=== PATIENT | female | born 1990 | race Caucasian/White ===

== ENCOUNTER 2016-08-28 16:51 | Emergency (ER) | payer BC ==
[2016-08-28 18:22] VITALS: BP 107/67
--- NOTE | 2016-08-28 18:44 | ED ---
Rachana Kitchen SooYoung, scribed for Carrillo Antony MD on 08/28/16 at 1730 . 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 Migraines about once a month. Rates YANG as 6/10 pain. Associated sx: weakness since resolved; diffuse numbess/tingling RUE starting at fingertips rising to R- side of chest to face including tongue, mostly resolved. Tingling sensation lasted approx 15 minutes, sx have not occurred before. Denies CP, SOB, leg weakness, slurred speech, changes to LUE, morning sickness, nausea. Pt was at work, stated she noticed having difficulty typing. Spoke to her PCP who recommended that she come to ED. This is her 1st , saw Dr. Villegas once. L-hand dominant. - History Of Current Complaint Chief Complaint: EDGeneral Time Seen by Provider: 08/28/16 17:21 Hx Obtained From: Patient Onset/Duration: Gradual Onset, Lasting Hours - this afternoon, Still Present Severity Currently: Moderate Severity Initially: Mild Associated Signs And Symptoms: Positive: Weakness - RUE, Other - pos: R-sided numbness/tingling, migraine. neg: slurred speech, changes to LUE. Negative: SOB , Chest Pain, Nausea - Allergies/Home Medications Allergies/Adverse Reactions: Allergies Allergy/AdvReac Type Severity Reaction Status Date / Time No Known Allergies Allergy Verified 06/27/15 17:34 PMH/Surg Hx/FS Hx/Imm Hx Previously Healthy: Yes Respiratory History: Denies: Hx Chronic Obstructive Pulmonary Disease (COPD) Sensory History: Denies: Hx Legally Blind Opthamlomology History: Denies: Hx Legally Blind - Surgical History Surgery Procedure, Year, and Place: T&A Infectious Disease History: No Infectious Disease History: Denies: Traveled Outside the [place] in Last 30 Days - Family History Known Family History: Positive: Other - PE - maternal, clotting disorders - maternal - Social History Alcohol Use: None Substance Use Type: Reports: None Smoking Status (MU): Never Smoked Tobacco Review of Systems Negative: Chest Pain Negative: Shortness Of Breath Negative: Nausea - neg: morning sickness Positive: Headache - `, Weakness - and tingling from RUE to face; neg leg weakness. Negative: Slurred Speech All Other Systems Reviewed And Are Negative: Yes Physical Exam - Summary Physical Exam Summary: The patient is well-nourished in no acute distress and in no acute pain. The skin is warm and dry and skin color reflects adequate perfusion. HEENT: The head is normocephalic and atraumatic. The pupils are equal and reactive. EOMI. The conjunctivae are clear and without drainage. Nares are patent and without drainage. Mouth reveals moist mucous membranes and the throat is without erythema and exudate. The external ears are intact. The ear canals are patent and without drainage. The tympanic membranes are intact. Neck is supple with full range of motion and non-tender. There are no carotid bruits. There is no neck vein distension. Respiratory: Chest is non-tender. Lungs are clear to auscultation and breath sounds are symmetrical and equal. Cardiovascular: Heart is regular rate and rhythm. There is no murmur or rub auscultated. There is no peripheral edema and pulses are symmetrical and equal. Musculoskeletal: There is no back pain noted. Extremities are non-tender with full range of motion. There is good capillary refill. There is no peripheral edema or calf tenderness elicited. Neurological: Patient is alert and oriented to person, place and time. The patient has symmetrical motor strength in all four extremities. Cranial II-XII intact. Pt has decreased sensation on RUE compared to LUE. Positive tinel's sign and phaleon's sign on RUE. No motor weakness noted. LE are intact. Finger to nose intact. No pronator drift. Psychiatric: The patient has an appropriate affect and does not exhibit any anxiety or depression. Triage Information Reviewed: Yes Vital Signs On Initial Exam: Initial Vitals Temp Pulse Resp BP Pulse Ox 98.1 F 76 20 139/92 99 08/28/16 17:02 08/28/16 17:02 08/28/16 17:02 08/28/16 17:02 08/28/16 17:02 Vital Signs Reviewed: Yes Diagnostics - Vital Signs Vital Signs Temp Pulse Resp BP Pulse Ox 08/28/16 17:05 97.8 F 78 18 139/92 98 08/28/16 17:02 98.1 F 76 20 139/92 99 - Laboratory Lab Statement: Any lab studies that have been ordered have been reviewed, and results considered in the medical decision making process. Complex Multi-Symp Course/Dx Course Of Treatment: Pt is a 26 y/o F who is 8-weeks presenting with migraine onset ARMED GUARD. PMHx: migraines 1x a month. Associated sx: weakness; diffuse numbess/tingling RUE starting at fingertips rising to R-side of chest to face including tongue, mostly resolved. Tingling sensation lasted approx 15 minutes, sx have not occurred before. Denies CP, SOB, leg weakness, slurred speech, changes to LUE, morning sickness, nausea. Pt was at work, stated she noticed having difficulty typing. Cock up splint applied to R wrist. D/C home to follow up with Dr. Villegas and PCP. - Diagnoses Differential Diagnoses/HQI/PQRI: Other - , migraine, paresthesias Provider Diagnoses: Median nerve entrapment, Migraine, Discharge - Discharge Plan Condition: Stable Disposition: HOME Patient Education Materials: Splint Care (ED), Paresthesia (ED), Migraine Headache (ED), (ED) Referrals: Rubia Murray MD [Primary Care Provider] - 1 Week Angel Villegas MD [Medical Doctor] - 1 Week Additional Instructions: Follow up with Dr. Murray and Dr. Villegas within the week. The documentation as recorded by the Rachana peña SooYoung accurately reflects the service I personally performed and the decisions made by , Carrillo Antony MD.
== END 2016-08-28 18:23 | disposition home or self-care (01) ==
LOC: ED 16:51
DX: O26.891 Other specified pregnancy related conditions, first trimester (principal); Z3A.08 8 weeks gestation of pregnancy; G43.909 Migraine, unspecified, not intractable, without status migrainosus; R53.1 Weakness; R51 Headache; G56.00 Carpal tunnel syndrome, unspecified upper limb
CPT/HCPCS: 99282

== ENCOUNTER 2017-04-05 13:32 | Inpatient (IN) | payer BC ==
[2017-04-05 18:01] LABS: ABS Basophils 0 10^3/ul (0-0.2); ABS Eosinophils 0 10^3/ul (0-0.6); ABS Lymphocytes 0.9 10^3/ul (1.0-4.8); ABS Monocytes 0.6 10^3/ul (0-0.8); ABS Neutrophils 11.7 10^3/ul (1.5-7.7); ABS Nucleated RBC 0 10^3/ul; Eosinophil % 0.2 % (0-6); Hematocrit 44 % (35-47); Lymphocyte % 7.1 % (25-47); Mean Corpuscular HGB Conc 34 g/dl (31-36); Mean Corpuscular Hemoglobin 30 pg (27-31); Mean Corpuscular Volume 89 fL (80-97); Mean Platelet Volume 9 um3 (7.4-10.4); Nucleated Red Blood Cells % 0; Platelet Count 267 10^3/ul (150-450); Red Blood Count 4.98 10^6/ul (4.0-5.4); Red Cell Distribution Width 14 % (10.5-15); White Blood Count 13.3 10^3/ul (3.5-10.8)
[2017-04-05] MEDS ORDERED: Nalbuphine* 20 MG/ML 1 ML VIAL IV ONE (18:19)
[2017-04-05] MEDS ORDERED: Nalbuphine* 20 MG/ML 1 ML VIAL ONE (18:23)
[2017-04-05] MEDS ORDERED: Oxytocin in LR* 20 UNITS/1,000 ML BAG IVPB ONE (19:44)
[2017-04-05] MEDS ORDERED: Oxytocin in LR* 20 UNITS/1,000 ML BAG IVPB SCH (20:00)
[2017-04-05] MEDS ORDERED: OBEPIDURAL* 250 ML EPIDURAL ONE (21:31)
[2017-04-05] MEDS ORDERED: fentaNYL* 50 MCG/ML 2 ML VIAL (100 MCG VIAL) ONE ×2 (21:48→23:10)
[2017-04-05] MEDS ORDERED: Famotidine TAB* 20 MG PO PRN (22:26)
[2017-04-05] MEDS ORDERED: Phenylephrine IV* 40 MCG/ML 10 ML SYRINGE IV PUSH PRN ×2 (22:26)
[2017-04-05] MEDS ORDERED: Sodium Citrate/Citric Acid* 15 ML UDC PO PRN (22:26)
[2017-04-05] MEDS ORDERED: OBEPIDURAL* 250 ML EPIDURAL SCH (23:00)
[2017-04-06] MEDS ORDERED: Acetaminophen TAB* 325 MG PO PRN (01:35)
[2017-04-06] MEDS ORDERED: Witch Hazel PAD* JAR TOPICAL PRN (01:35)
[2017-04-06] MEDS ORDERED: Dibucaine 1% 28.35 GM TUBE PR PRN (01:35)
[2017-04-06] MEDS ORDERED: Misoprostol TAB* 200 MCG PR ONE (01:35)
[2017-04-06] MEDS ORDERED: Glycerin ADULT SUPP PR PRN (01:35)
[2017-04-06] MEDS ORDERED: Oxytocin in LR* 20 UNITS/1,000 ML BAG IVPB SCH (02:00)
[2017-04-06] MEDS: Ibuprofen TAB* 600 MG PO PRN ×4 (04:40→22:41)
[2017-04-06] MEDS ORDERED: Simethicone TAB* 80 MG TAB.CHEW PO SCH (08:30)
[2017-04-06] MEDS ORDERED: PRENATAL VITAMINS PO SCH (09:00)
[2017-04-06] MEDS: Docusate CAP* 100 MG PO SCH ×3 (10:33→22:41)
[2017-04-07 06:44] LABS: ABS Basophils 0.1 10^3/ul (0-0.2); ABS Eosinophils 0.2 10^3/ul (0-0.6); ABS Lymphocytes 3.2 10^3/ul (1.0-4.8); ABS Neutrophils 7.2 10^3/ul (1.5-7.7); ABS Nucleated RBC 0 10^3/ul; Eosinophil % 2.1 % (0-6); Hematocrit 33 % (35-47); Hemoglobin 11.3 g/dl (12.0-16.0); Lymphocyte % 27.6 % (25-47); Mean Corpuscular HGB Conc 34 g/dl (31-36); Mean Corpuscular Hemoglobin 31 pg (27-31); Mean Corpuscular Volume 91 fL (80-97); Mean Platelet Volume 8 um3 (7.4-10.4); Nucleated Red Blood Cells % 0; Platelet Count 255 10^3/ul (150-450); Red Blood Count 3.68 10^6/ul (4.0-5.4); Red Cell Distribution Width 14 % (10.5-15); White Blood Count 11.7 10^3/ul (3.5-10.8)
[2017-04-07] MEDS: Docusate CAP* 100 MG PO SCH ×3 (08:43→20:56)
[2017-04-07] MEDS ORDERED: Ferrous Gluconate TAB* 324 MG TAB PO SCH (09:00)
[2017-04-07] MEDS: Ibuprofen TAB* 600 MG PO PRN (14:07)
--- NOTE | 2017-04-08 02:56 | PTEDU ---
Patient Name: PAL MILIAN MAICOLPAL selected video: Never Ever Shake a Baby to view on 04/08/2017 at 2:55:28 AM from [facility] [id number]
[2017-04-08 08:39] VITALS: BP 93/68
[2017-04-08] MEDS: Docusate CAP* 100 MG PO SCH (08:44)
[2017-04-08] MEDS ORDERED: Prenatal Vitamin TAB PO SCH (10:30)
== END 2017-04-08 11:40 | disposition home or self-care (01) | DRG 560 ==
LOC: MCHOBOUT 13:32 → MCHOB 15:34
PROVIDERS: ADMIT Obstetrics & Gynecology; ATTEND Obstetrics & Gynecology
PROC: 10H073Z Insertion of Monitoring Electrode into Products of Conception, Via Natural or Artificial Opening (ICD-10-PCS; principal; 2017-04-05)
PROC: 4A1H7CZ Monitoring of Products of Conception, Cardiac Rate, Via Natural or Artificial Opening (ICD-10-PCS; 2017-04-05)
PROC: 10H07YZ Insertion of Other Device into Products of Conception, Via Natural or Artificial Opening (ICD-10-PCS; 2017-04-05)
PROC: 10E0XZZ Delivery of Products of Conception, External Approach (ICD-10-PCS; 2017-04-05)
PROC: 4A1HXCZ Monitoring of Products of Conception, Cardiac Rate, External Approach (ICD-10-PCS; 2017-04-05)
DX: O99.214 Obesity complicating childbirth (principal); E66.9 Obesity, unspecified; Z68.35 Body mass index [BMI] 35.0-35.9, adult; O69.2XX0 Labor and delivery complicated by other cord entanglement, with compression, not applicable or unspecified; Z3A.39 39 weeks gestation of pregnancy; Z37.0 Single live birth
CPT/HCPCS: 36415; 84112; 85025; 86850; 86900; 86901; A9270-GY; J2300; J3010

== ENCOUNTER → 2017-09-01 11:02 | Day surgery (SDC) | payer BC ==
[~2017-09-01 11:02] MED LIST: Buffered Lidocaine 0.9% SYRIN* 5 ML/SYR SYRINGE INTRADERM ONE; Bupivacaine 0.5% SDV PF* 30ML VIAL ONE; Dexamethasone TAB* 4 MG ONE; Dexamethasone TAB* 4 MG PO ONE; DiMENhydriNATE IV* 50 MG/ML VIAL IV PUSH PRN; Famotidine IV* 10 MG/ML 2 ML (20 mg) IV ONE; Famotidine IV* 10 MG/ML 2 ML (20 mg) ONE; Ketorolac INJ* 30 MG/ML 1 ML VIAL ONE; Lidocaine 2% PF * 5 ML VIAL ONE; Midazolam* 1 MG/ML 5 ML VIAL (5 MG) ONE; Morphine INJ* 2 MG/ML 1 ML CARPUJECT IV PRN; Naloxone* 0.4 MG/ML 1 ML VIAL IV PRN; Ondansetron ODT TAB* 4 MG ONE; PROCHLORPERAZINE INJ 5 MG/ML 2 ML VIAL IV PRN; Propofol* 10 MG/ML 20 ML BTL IV PUSH ONE; fentaNYL* 50 MCG/ML 2 ML VIAL (100 MCG VIAL) IV PRN; fentaNYL* 50 MCG/ML 2 ML VIAL (100 MCG VIAL) ONE; oxyCODONE/Acetamin 5/325 MG* TAB PO PRN
[2017-09-01] MEDS: Ondansetron INJ* 2 MG/ML VIAL ONE (12:10)
[2017-09-01 13:53] VITALS: BP 110/72
--- NOTE | 2017-09-01 20:56 | OP ---
DATE OF OPERATION: 09/01/17 - [facility] DATE OF : 89 SURGEON: Raman Pepe MD FIG WASHER: TAMIA Kern ANESTHESIOLOGIST: Dr. Ferrera. ANESTHESIA: Local MAC. PRE-OP DIAGNOSIS: Left de Quervain disease. POST-OP DIAGNOSIS: Left de Quervain disease. OPERATIVE PROCEDURE: Left de Quervain release. INDICATIONS: Yasmin is 27, she is five months . She has developed pretty significant de Quervain disease; it got better but not completely with the injection. We talked about her options. She wanted to proceed with surgical release. ESTIMATED BLOOD LOSS: 1 mL. COMPLICATIONS: None. FINDINGS: As expected. DESCRIPTION OF PROCEDURE: Yasmin was seen in the preoperative holding area. The correct side, site, and procedure were identified. We came back to the operating room where the arm was prepped and draped in the usual fashion. I had infiltrated 0.5% Marcaine prior to prepping and draping the arm. A time out was performed. I exsanguinated the arm with the Esmarch and the tourniquet was inflated to 250 mmHg. I made a transverse 2-cm incision just proximal to the radial styloid. Full thickness flaps were raised off the tendon sheath bluntly with the tenotomy scissors. The Ragnell retractors were placed to protect the radial sensory nerve. The sheath was released, just along its dorsal aspect, there was a small accessory compartment that was released. After this was done, everything was looking good. There was no more compression on the tendons. The release had been completed proximally and distally with the tenotomy scissors. I then irrigated out the wound. It was closed with Monocryl and a Steri-Strip. Dressings were applied. She was taken to the recovery room in stable condition. [id number]/[facility] #: [id number] [facility] CENTERConstantine
== END | disposition home or self-care (01) ==
LOC: OR 11:02
PROVIDERS: ATTEND Orthopaedic Surgery Hand Surgery
DX: M65.4 Radial styloid tenosynovitis [de Quervain] (principal)
CPT/HCPCS: 81025; A9270-GY; J1885; J2250; J2704; J3010; J8540

== ENCOUNTER 2018-11-08 02:07 | Inpatient (IN) | payer BC ==
[2018-11-08] MEDS ORDERED: Lactated Ringers 1000 ML Bag* 1,000 ML IV ONE ×2 (04:47→06:21)
[2018-11-08] MEDS ORDERED: Buffered Lidocaine 1% SYRIN* 1 ML/SYRINGE INTRADERM ONE (04:47)
[2018-11-08] MEDS ORDERED: OBEPIDURAL* 250 ML EPIDURAL ONE (04:49)
[2018-11-08 04:58] LABS: ABS Eosinophils 0.1 10^3/ul (0-0.6); ABS Lymphocytes 2.2 10^3/ul (1.0-4.8); ABS Monocytes 0.7 10^3/ul (0-0.8); ABS Neutrophils 7.7 10^3/ul (1.5-7.7); Eosinophil % 1.1 %; Hematocrit 41 % (35-47); Lymphocyte % 20.6 %; Mean Corpuscular HGB Conc 34 g/dL (31-36); Mean Corpuscular Hemoglobin 30 pg (27-31); Mean Corpuscular Volume 88 fL (80-97); Mean Platelet Volume 7.8 fL (7.4-10.4); Nucleated Red Blood Cells % 0.1; Platelet Count 280 10^3/uL (150-450); Red Blood Count 4.69 10^6 /uL (3.70-4.87); Red Cell Distribution Width 14 % (10-15); White Blood Count 10.8 10^3/uL (3.5-10.8)
[2018-11-08] MEDS ORDERED: Lactated Ringers 1000 ML Bag* 1,000 ML IV SCH ×3 (05:00→10:00)
--- NOTE | 2018-11-08 05:03 | HP ---
General Information - Reason for Visit contractions/ rupture of membranes - General Information Maternal Age: 28 Grav: 2 Para: 1 SAB: 0 IEA: 0 Estimated Due Date: 11/18/18 Determined By: Early Ultrasound Maternal Blood Type and Rh: A Positive - Results this Serology/RPR Result: Non-Reactive Rubella Result: Immune HBsAg Result: Negative HIV Result: Negative GBS Culture Result: Negative Past Medical History Delivery History: See Records Pertinent Past Medical History: See Records Pertinent Past Surgical History: See Records Pertinent Family History: See Records - Antepartal Records Antepartal Records: Reviewed, Uncomplicated Review of Systems Constitutional: Uncomfortable CV Complaint: No Respiratory: Shortness of Breath: No Gastrointestinal: No Nausea/Vomiting Genitourinary: Leaking Fluid, No Dysuria, No Bleeding Musculoskeletal: Contractions Neurological: No Headache Movement: Normal Exam Allergies/Adverse Reactions: Allergies No Known Allergies Allergy (Verified 11/08/18 02:32) T : 97.2 P: 92 BP: 116/67 Lab Values - Entire Visit: Laboratory Tests 11/08/18 02:25 Vag Amniotic Fld Detect Positive - Measurements Height: 5 ft 3 in Weight: 200 lb Weight in lbs: [id number] Body Mass Index (BMI): 35.4 Pre- Weight: 196 lb Weight Gained This : 4 lbs and 0 ozs - Exam Breast: Breast Exam Deferred CVA: No CVA Tenderness Extremities: No Edema Heart: Normal Rhythm/Heart Sounds HEENT: No Significant Findings Lungs: Clear Bilaterally Rectal: Rectal Exam Deferred Reflexes: DTR 2+ Thyroid: No Thyromegaly - Abdominal Exam Abdomen Exam: Non-Tender - Ultrasound/Biophysical Profile Ultrasound Status: Not Done Targeted Exam Findings Cervical Exam: 3cm Effacement: 60% Station: -1 Presenting Part: Vertex Membrane Status: Leaking Amniotic Fluid Evaluation: Gross Rupture, Positive ROM Plus EFM Findings - External Monitor Findings Baseline Heart Rate: 140 External Monitor Findings: Accelerations Present, No Pattern of Variable or Late Decelerations, Variability Moderate Contractions: Regular - q 3-4' Assessment/Plan - Assessment Pt 28 yo G 2P1 at 38 3/7 weeks wit h SROM/ labor/ admit - Plan Plan: Admit - Anticipate Vaginal Delivery
[2018-11-08] MEDS ORDERED: Phenylephrine 40 MCG/ML SYRINGE IV PUSH PRN (06:21)
[2018-11-08] MEDS ORDERED: Sodium Citrate/Citric Acid* 15 ML UDC PO PRN (06:21)
[2018-11-08] MEDS ORDERED: OBEPIDURAL* 250 ML EPIDURAL SCH (07:00)
[2018-11-08 07:20] LABS: Urine Benzodiazepine Screen None Detected (None Detect); Urine Opiates Screen None Detected (None Detect)
[2018-11-08] MEDS ORDERED: Glycerin ADULT SUPP PR PRN (09:40)
[2018-11-08] MEDS ORDERED: Dibucaine 1% 28.35 GM TUBE PR PRN (09:40)
[2018-11-08] MEDS ORDERED: Acetaminophen TAB* 325 MG PO PRN (09:40)
[2018-11-08] MEDS ORDERED: Witch Hazel PAD* JAR TOPICAL PRN (09:40)
[2018-11-08] MEDS ORDERED: Oxytocin in LR* 20 UNITS/1,000 ML BAG IVPB SCH (10:00)
--- NOTE | 2018-11-08 10:02 | PROCNOTE ---
[facility] OB: Delivery Note - Delivery A Date of : 11/08/18 Time of : 08:55 [place] Sex: Female Weight at : 7 lb 4 oz Score 1 Minute: 9 Score 5 Minutes: 10 Gestational Age in Weeks and Days at Delivery: 38 Weeks and 4 Days Delivery Method: Spontaneous Vaginal Labor: Spontaneous Did Patient attempt ?: N/A, No Previous Amniotic Fluid: Clear Estimated Blood Loss: 300 Anesthesia/Analgesia: CEI for Labor Delivered By: Debby Lopes - Nursery Level of Nursery: Regular/Bedside - Perineum Perineal Injury: None/Intact Perineal Repair: None - Events Delivery Events of Note: Pitocin Only After Delivery
[2018-11-08] MEDS ORDERED: OXYTOCIN* 10 UNITS/ML 1 ML VIAL ONE (10:25)
[2018-11-08] MEDS ORDERED: Simethicone TAB* 80 MG TAB.CHEW PO SCH (12:30)
[2018-11-08] MEDS: Ibuprofen TAB* 600 MG PO PRN (18:25)
[2018-11-08] MEDS: Docusate CAP* 100 MG PO SCH ×2 (18:42→21:18)
[2018-11-09] MEDS: Ibuprofen TAB* 600 MG PO PRN ×2 (00:29→08:19)
[2018-11-09 05:37] LABS: ABS Eosinophils 0.2 10^3/ul (0-0.6); ABS Lymphocytes 2.8 10^3/ul (1.0-4.8); ABS Monocytes 0.8 10^3/ul (0-0.8); ABS Neutrophils 6.7 10^3/ul (1.5-7.7); Eosinophil % 1.7 %; Hematocrit 37 % (35-47); Hemoglobin 12.4 g/dL (12.0-16.0); Lymphocyte % 26.6 %; Mean Corpuscular HGB Conc 34 g/dL (31-36); Mean Corpuscular Hemoglobin 30 pg (27-31); Mean Corpuscular Volume 89 fL (80-97); Mean Platelet Volume 7.8 fL (7.4-10.4); Platelet Count 237 10^3/uL (150-450); Red Cell Distribution Width 14 % (10-15); White Blood Count 10.5 10^3/uL (3.5-10.8)
[2018-11-09] MEDS: Docusate CAP* 100 MG PO SCH (08:19)
[2018-11-09] MEDS ORDERED: Ferrous Gluconate TAB* 324 MG TAB PO SCH (09:00)
[2018-11-09 12:30] VITALS: BP 118/60
== END 2018-11-09 13:40 | disposition home or self-care (01) | DRG 560 ==
LOC: MCHOBOUT 02:07 → MCHOB 03:09
PROVIDERS: ADMIT Obstetrics & Gynecology; ATTEND Obstetrics & Gynecology
PROC: 10E0XZZ Delivery of Products of Conception, External Approach (ICD-10-PCS; principal; 2018-11-08)
PROC: 10E0XZZ Delivery of Products of Conception, External Approach (ICD-10-PCS; 2018-11-08)
DX: O80 Encounter for full-term uncomplicated delivery (principal); Z37.0 Single live birth; Z3A.38 38 weeks gestation of pregnancy
CPT/HCPCS: 36415; 80307; 84112; 85025; 86850; 86900; 86901; A9270-GY; J2590

== ENCOUNTER 2020-09-19 09:23 | Inpatient (IN) ==
[~2020-09-19 09:23] MED LIST changes: -Buffered Lidocaine 0.9% SYRIN* 5 ML/SYR SYRINGE INTRADERM ONE; +Buffered Lidocaine 1% SYRIN 1 ml INTRADERM ONE; -Bupivacaine 0.5% SDV PF* 30ML VIAL ONE; -Dexamethasone TAB* 4 MG ONE; -Dexamethasone TAB* 4 MG PO ONE; +DiMENhydriNATE IV 50 mg/ml 1 ml VIAL IV PUSH ONE; -DiMENhydriNATE IV* 50 MG/ML VIAL IV PUSH PRN; -Famotidine IV* 10 MG/ML 2 ML (20 mg) IV ONE; -Famotidine IV* 10 MG/ML 2 ML (20 mg) ONE; +HYDROmorphone 1 MG/1 ML SYRINGE IV PRN; -Ketorolac INJ* 30 MG/ML 1 ML VIAL ONE; +Lactated Ringers 1000 ml BAG 1,000 ML IV SCH; -Lidocaine 2% PF * 5 ML VIAL ONE; +Lidocaine 2% PF 5 ML VIAL ONE; +Midazolam 2 mg/2 ml VIAL 1 mg/ml 2 ml VIAL (2 mg) ONE; -Midazolam* 1 MG/ML 5 ML VIAL (5 MG) ONE; -Morphine INJ* 2 MG/ML 1 ML CARPUJECT IV PRN; +Naloxone 0.4 mg VIAL 0.4 mg/ml 1 ml VIAL IV PRN; -Naloxone* 0.4 MG/ML 1 ML VIAL IV PRN; +Ondansetron 4 mg VIAL 2 MG/ML 2 ml VIAL IV PRN; -Ondansetron ODT TAB* 4 MG ONE; -PROCHLORPERAZINE INJ 5 MG/ML 2 ML VIAL IV PRN; +Propofol 10 MG/ML 20 ML BTL ONE; -Propofol* 10 MG/ML 20 ML BTL IV PUSH ONE; +Rocuronium 50 mg VIAL 10 mg/ml 5 ml VIAL (50 mg) ONE; +fentaNYL 100 mcg/2 ml 50 MCG/ML VIAL IV PRN; +fentaNYL 250 mcg/5 ml 50 MCG/ML 5 ml VIAL (250 MCG) ONE; -fentaNYL* 50 MCG/ML 2 ML VIAL (100 MCG VIAL) IV PRN; -fentaNYL* 50 MCG/ML 2 ML VIAL (100 MCG VIAL) ONE; -oxyCODONE/Acetamin 5/325 MG* TAB PO PRN
[2020-09-19] MEDS ORDERED: DiMENhydriNATE IV 50 mg/ml 1 ml VIAL ONE (09:57)
[2020-09-19] MEDS ORDERED: Heparin 5000 UNITS/ML 1 mL VIAL ONE (09:57)
[2020-09-19] MEDS ORDERED: Buffered Lidocaine 1% SYRIN 1 ml INTRADERM ONE ×2 (09:58→10:01)
[2020-09-19] MEDS ORDERED: ceFAZolin 2 GM in NS PREMIX 2 GM/100 ML BAG IVPB ONE (09:58)
[2020-09-19] MEDS ORDERED: ceFAZolin 1 GM ADVAN 1 GM ADDV.VIAL IVPB ONE (09:58)
[2020-09-19] MEDS ORDERED: Bupivacaine 0.25% EPI 200,000 30 ML SDV ONE (10:31)
[2020-09-19 10:32] LABS: ABS Eosinophils 0.1 10^3/ul (0-0.6); ABS Lymphocytes 2.1 10^3/ul (1.0-4.8); ABS Monocytes 0.4 10^3/ul (0-0.8); ABS Neutrophils 4.4 10^3/ul (1.5-7.7); Eosinophil % 1.9 %; Hematocrit 44 % (35-47); Hemoglobin 15.2 g/dL (12.0-16.0); Lymphocyte % 29.3 %; Mean Corpuscular HGB Conc 34 g/dL (31-36); Mean Corpuscular Hemoglobin 30 pg (27-31); Mean Corpuscular Volume 86 fL (80-97); Mean Platelet Volume 7.8 fL (7.4-10.4); Platelet Count 329 10^3/uL (150-450); Red Blood Count 5.15 10^6 /uL (3.70-4.87); Red Cell Distribution Width 14 % (10-15)
[2020-09-19 10:45] LABS: Calcium 9.3 mg/dL (8.6-10.3); Potassium 3.8 mmol/L (3.5-5.0)
[2020-09-19 10:50] LABS: EGFR Non-African American 103.3 (>60)
[2020-09-19] MEDS ORDERED: Dexamethasone IV 4 MG/ML VIAL 1 ml VIAL ONE (11:22)
[2020-09-19] MEDS ORDERED: HYDROmorphone 1 MG/1 ML SYRINGE ONE (12:04)
[2020-09-19] MEDS ORDERED: Rocuronium 50 mg VIAL 10 mg/ml 5 ml VIAL (50 mg) ONE (12:05)
[2020-09-19] MEDS ORDERED: Dexmedetomidine 200 mcg/2 ml 2 ml VIAL (200 mcg) ONE (12:20)
[2020-09-19] MEDS ORDERED: fentaNYL 100 mcg/2 ml 50 MCG/ML VIAL ONE ×2 (12:31→14:23)
[2020-09-19] MEDS ORDERED: Ondansetron 4 mg VIAL 2 MG/ML 2 ml VIAL ONE (12:31)
[2020-09-19] MEDS ORDERED: HYDROmorphone 1 MG/1 ML SYRINGE IV SLOW PU PRN (13:26)
[2020-09-19] MEDS ORDERED: diPHENhydraMINE IV 50 MG/ML 1 ml VIAL (BENADRYL) SLOW PUSH PRN (13:26)
[2020-09-19] MEDS: Ondansetron 4 mg VIAL 2 MG/ML 2 ml VIAL IV PRN (15:42)
[2020-09-19] MEDS: Heparin 5000 UNITS/ML 1 mL VIAL SUBCUT SCH ×2 (15:42→22:08)
[2020-09-19] MEDS: HYDROmorphone 0.5 MG/0.5 ML SYRINGE IV SLOW PU PRN ×2 (15:42→22:14)
[2020-09-19] MEDS: Lactated Ringers 1000 ml BAG 1,000 ML IV SCH ×2 (15:50→22:08)
[2020-09-19] MEDS: Famotidine IV 10 MG/ML 2 ml VIAL (20 mg) IV SLOW PU SCH (22:08)
[2020-09-19] MEDS: Metoclopramide 5 MG/ML VIAL (10 mg) IV PRN (22:15)
[2020-09-20] MEDS: Ondansetron 4 mg VIAL 2 MG/ML 2 ml VIAL IV PRN (02:37)
[2020-09-20] MEDS: Heparin 5000 UNITS/ML 1 mL VIAL SUBCUT SCH ×3 (04:59→21:41)
[2020-09-20] MEDS: Lactated Ringers 1000 ml BAG 1,000 ML IV SCH ×2 (04:59→11:40)
[2020-09-20] MEDS: Metoclopramide 5 MG/ML VIAL (10 mg) IV PRN (04:59)
[2020-09-20] MEDS: Famotidine IV 10 MG/ML 2 ml VIAL (20 mg) IV SLOW PU SCH ×2 (08:47→21:41)
[2020-09-20] MEDS: D5W 1/2 NS KCl 20 meq 1000 ml 1,000 ML IV SCH (18:45)
[2020-09-21] MEDS: D5W 1/2 NS KCl 20 meq 1000 ml 1,000 ML IV SCH (02:48)
[2020-09-21] MEDS: Heparin 5000 UNITS/ML 1 mL VIAL SUBCUT SCH (05:40)
[2020-09-21 08:20] VITALS: BP 140/90
[2020-09-21] MEDS: Famotidine IV 10 MG/ML 2 ml VIAL (20 mg) IV SLOW PU SCH (08:24)
[2020-09-23] MEDS ORDERED: Scopolamine PATCH Remove NOTE PATCH OFF ONE (05:30)
== END 2020-09-21 09:45 | disposition home or self-care (01) | DRG 403 ==
LOC: AA 09:23 → SSU 15:23
PROVIDERS: ADMIT Surgery; ATTEND Surgery